=== PATIENT | male | born 1990 | race Caucasian/White ===

== ENCOUNTER 2018-09-16 09:52 | Emergency (ER) | payer OTHER ==
[~2018-09-16] VITALS: Ht 162.6 cm; Wt 82.1 kg
[2018-09-16 09:55] VITALS: Ht 162.6 cm; Wt 82.1 kg
[2018-09-16] MEDS ORDERED: KETOROLAC 30 MG INJ IM STA (10:20)
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
[2018-09-16] MEDS ORDERED: TRAM50TA2 PO (11:01)
[2018-09-16] MEDS ORDERED: NAPR-985 PO (11:01)
[2018-09-16 11:45] VITALS: BP 124/77; PULSE 75; RESP 19
== END 2018-09-16 11:46 | disposition home or self-care (01) ==
LOC: FTE 09:52
DX: S39.92XA Unspecified injury of lower back, initial encounter (principal); V49.49XA Driver injured in collision with other motor vehicles in traffic accident, initial encounter
CPT/HCPCS: 72072; 72100; 73080; 96372; J1885; Z7502